=== PATIENT | female | born 1960 | race African-American/Black ===

== ENCOUNTER 2019-06-04 14:01 | Inpatient (IN) | payer MEDICAID ==
[~2019-06-04] VITALS: Ht 162.6 cm; Wt 45.4 kg
[~2019-06-04 14:01] MED LIST: AMLO10TA4 PO; ASPI-1393 PO; CALC-25 PO; CALC0.253 PO; CALC667T6 PO; CARI350T27 PO; CARV3.1242 PO; CATOPRIL PO; CLON0.2T PO; DIPH25CA83 PO; FAMO20TA8 PO; FERR-63 PO; FOLI-43 PO; HYDR-1717 PO; LISI-604 PO; LOSA100T32 PO
[2019-06-04] MEDS ORDERED: MORPHINE SULFATE 4 MG/ML CPJ (NOT FOR IM USE) IV STA (16:16)
[2019-06-04] MEDS ORDERED: ONDANSETRON HCL 4MG/2ML INJ IV STA (16:16)
[2019-06-04 16:44] LABS: HEMATOCRIT. 37.9 % (36.0-48.0); HEMOGLOBIN. 12.8 g/dL (12.0-16.0); MEAN CORPUSCULAR HEMOGLOBIN 32.1 pg (28.0-32.0); MEAN CORPUSCULAR VOLUME 95.3 fL (81.0-99.0); MEAN PLATELET VOLUME 8.3 fl (7.4-10.4); PLATELET 323 x1000/uL (130-400); RED BLOOD CELL COUNT 3.98 mill/uL (4.2-5.4); RED CELL DISTRIBUTION WIDTH 16.2 % (11.6-14.6)
[2019-06-04 16:51] LABS: CHLORIDE 95 mEq/L (98-107)
[2019-06-04 17:08] LABS: PLATELET ESTIMATE NORMAL
[2019-06-04 23:24] VITALS: BP 104/73
[2019-06-05] VITALS: BP 121/72
[2019-06-05] MEDS ORDERED: HYDROCODONE/ACETAMINOPHEN 10/325MG TABLET PO PRN
[2019-06-05 04:00] VITALS: BP 128/77
[2019-06-05 07:50] LABS: HEMATOCRIT. 32.6 % (36.0-48.0); HEMOGLOBIN. 10.7 g/dL (12.0-16.0); MEAN CORPUSCULAR HEMOGLOBIN 31.4 pg (28.0-32.0); MEAN CORPUSCULAR VOLUME 95.3 fL (81.0-99.0); PLATELET 304 x1000/uL (130-400); RED BLOOD CELL COUNT 3.42 mill/uL (4.2-5.4); RED CELL DISTRIBUTION WIDTH 16.5 % (11.6-14.6)
[2019-06-05] MEDS ORDERED: MEDICATION NOT ON FORMULARY EA (Calcium Acetate 667 MG) PO SCH (07:50)
[2019-06-05] MEDS ORDERED: CALCIUM ACETATE 667MG CAPSULE PO SCH (07:50)
[2019-06-05 08:00] VITALS: BP 156/82
[2019-06-05] MEDS ORDERED: CARVEDILOL 3.125 MG TABLET PO SCH (09:00)
[2019-06-05] MEDS ORDERED: ASPIRIN 81MG EC TABLET PO SCH (09:00)
[2019-06-05] MEDS ORDERED: FERROUS SULFATE 325MG TABLET PO SCH (09:00)
[2019-06-05] MEDS ORDERED: CALCITRIOL 0.25MCG CAPSULE PO SCH (09:00)
[2019-06-05] MEDS ORDERED: CLONIDINE 0.1MG TABLET PO PRN ×2 (09:00)
[2019-06-05] MEDS ORDERED: FAMOTIDINE 20MG TABLET PO SCH (09:00)
[2019-06-05] MEDS ORDERED: FOLIC ACID 1MG TABLET PO SCH (09:00)
[2019-06-05] MEDS ORDERED: AMLODIPINE 10MG TABLET PO SCH (09:00)
[2019-06-05] MEDS ORDERED: CARISOPRODOL 350 MG TABLET PO SCH (09:00)
[2019-06-05] MEDS ORDERED: LOSARTAN POTASSIUM 100 MG TABLET PO SCH (09:00)
[2019-06-05] MEDS ORDERED: CALCIUM CARBONATE 1250MG TABLET (500MG ELEMENTAL CALCIUM) PO SCH (09:00)
[2019-06-05] MEDS: FERROUS SULFATE 325MG TABLET PO SCH ×2 (09:11→17:48)
[2019-06-05] MEDS: FAMOTIDINE 20MG TABLET PO SCH (09:11)
[2019-06-05] MEDS: ASPIRIN 81MG EC TABLET PO SCH (09:11)
[2019-06-05] MEDS: CALCIUM ACETATE 667MG CAPSULE PO SCH ×3 (09:11→17:49)
[2019-06-05] MEDS: AMLODIPINE 10MG TABLET PO SCH ×2 (09:12→20:23)
[2019-06-05] MEDS: HYDROCODONE/ACETAMINOPHEN 10/325MG TABLET PO PRN (09:13)
[2019-06-05] MEDS: CALCIUM CARBONATE 1250MG TABLET (500MG ELEMENTAL CALCIUM) PO SCH ×2 (09:14→17:49)
[2019-06-05] MEDS: LOSARTAN POTASSIUM 100 MG TABLET PO SCH (09:14)
[2019-06-05] MEDS: CALCITRIOL 0.25MCG CAPSULE PO SCH ×2 (09:14→17:49)
[2019-06-05] MEDS: CARVEDILOL 3.125 MG TABLET PO SCH ×2 (09:14→20:23)
[2019-06-05] MEDS: CARISOPRODOL 350 MG TABLET PO SCH (09:14)
[2019-06-05] MEDS: FOLIC ACID 1MG TABLET PO SCH (09:15)
[2019-06-05] MEDS ORDERED: SODIUM POLYSTYRENE SULFONATE 15 G/60 ML BOT PO NR (09:45)
[2019-06-05] MEDS: DOCUSATE SODIUM 100MG CAPSULE PO SCH ×2 (11:48→17:48)
[2019-06-05] MEDS: SEVELAMER CARBONATE 800 MG TABLET PO SCH ×2 (11:50→17:49)
[2019-06-05 12:00] VITALS: BP 134/59
[2019-06-05] MEDS: MORPHINE SULFATE 2 MG/ML CPJ (NOT FOR IM USE) IV PRN ×2 (15:20→21:28)
[2019-06-05 15:59] LABS: CREATINE KINASE 59 IU/L (26-192)
[2019-06-05 16:00] VITALS: BP 137/67
[2019-06-05 16:00] LABS: CREATINE KINASE MB FRACTION 1.2 ng/mL (0.5-3.6)
[2019-06-05] MEDS ORDERED: DIPHENHYDRAMINE 25MG CAPSULE PO SCH (17:00)
[2019-06-05] MEDS: DIPHENHYDRAMINE 25MG CAPSULE PO SCH (17:00)
[2019-06-05] MEDS ORDERED: DIPHENHYDRAMINE 50MG/ML VIAL IV PRN (18:00)
[2019-06-05 20:00] VITALS: BP 136/67
[2019-06-05 21:02] LABS: PLATELET ESTIMATE NORMAL
[2019-06-05] MEDS ORDERED: HYDROMORPHONE HCL/PF 2MG/ML CPJ IV ONE (23:30)
[2019-06-06] VITALS: BP 151/65
[2019-06-06] MEDS: CALCIUM ACETATE 667MG CAPSULE PO SCH ×4 (07:39→17:54)
[2019-06-06] MEDS: FERROUS SULFATE 325MG TABLET PO SCH ×2 (07:39→17:54)
[2019-06-06] MEDS: SEVELAMER CARBONATE 800 MG TABLET PO SCH ×4 (07:39→17:54)
[2019-06-06 08:00] VITALS: BP 154/98
[2019-06-06] MEDS: ASPIRIN 81MG EC TABLET PO SCH (09:00)
[2019-06-06] MEDS: CALCIUM CARBONATE 1250MG TABLET (500MG ELEMENTAL CALCIUM) PO SCH ×2 (09:00→17:54)
[2019-06-06] MEDS: DOCUSATE SODIUM 100MG CAPSULE PO SCH ×2 (09:00→17:54)
[2019-06-06] MEDS: CALCITRIOL 0.25MCG CAPSULE PO SCH ×2 (09:00→17:54)
[2019-06-06] MEDS: LOSARTAN POTASSIUM 100 MG TABLET PO SCH (09:00)
[2019-06-06] MEDS: AMLODIPINE 10MG TABLET PO SCH ×2 (09:00→23:29)
[2019-06-06] MEDS: FOLIC ACID 1MG TABLET PO SCH (09:00)
[2019-06-06] MEDS: CARISOPRODOL 350 MG TABLET PO SCH (09:00)
[2019-06-06] MEDS: CARVEDILOL 3.125 MG TABLET PO SCH ×2 (09:00→23:29)
[2019-06-06] MEDS: FAMOTIDINE 20MG TABLET PO SCH (09:00)
[2019-06-06 09:21] LABS: HEMATOCRIT. 31.6 % (36.0-48.0); HEMOGLOBIN. 10.4 g/dL (12.0-16.0); MEAN CORPUSCULAR HEMOGLOBIN 31.4 pg (28.0-32.0); MEAN CORPUSCULAR VOLUME 95.2 fL (81.0-99.0); MEAN PLATELET VOLUME 8.7 fl (7.4-10.4); PLATELET 319 x1000/uL (130-400); RED BLOOD CELL COUNT 3.31 mill/uL (4.2-5.4); RED CELL DISTRIBUTION WIDTH 15.7 % (11.6-14.6)
[2019-06-06] MEDS ORDERED: REGADENOSON 0.4 MG/5 ML IV ONE ×2 (11:15→13:35)
[2019-06-06 12:00] VITALS: BP 176/102
[2019-06-06] MEDS: MORPHINE SULFATE 2 MG/ML CPJ (NOT FOR IM USE) IV PRN ×2 (15:21→23:28)
[2019-06-06 16:00] VITALS: BP 196/105
[2019-06-06 16:04] LABS: PLATELET ESTIMATE NORMAL
[2019-06-06] MEDS: DIPHENHYDRAMINE 25MG CAPSULE PO SCH (16:30)
[2019-06-06] MEDS: HYDROCODONE/ACETAMINOPHEN 10/325MG TABLET PO PRN (16:42)
[2019-06-06] MEDS ORDERED: DIPHENHYDRAMINE 50MG/ML VIAL IV NR (17:15)
[2019-06-06 20:00] VITALS: BP 148/76
[2019-06-06] MEDS ORDERED: EPOETIN ALFA 4000UNITS/ML VIAL SUBCUT ONE ×2 (21:00)
[2019-06-06] MEDS: HEPARIN SODIUM 1,000 UNIT/1ML VIAL IV NR ×2 (23:11→23:26)
[2019-06-07] VITALS: BP 152/86
[2019-06-07 04:00] VITALS: BP 185/99
[2019-06-07] MEDS: FERROUS SULFATE 325MG TABLET PO SCH (06:49)
[2019-06-07] MEDS: SEVELAMER CARBONATE 800 MG TABLET PO SCH ×2 (06:49→13:28)
[2019-06-07 06:51] VITALS: BP 185/99
[2019-06-07 08:00] VITALS: BP 162/78
[2019-06-07] MEDS ORDERED: CARVEDILOL 6.25 MG TABLET PO SCH (09:00)
[2019-06-07] MEDS: ASPIRIN 81MG EC TABLET PO SCH (09:32)
[2019-06-07] MEDS: CALCITRIOL 0.25MCG CAPSULE PO SCH (09:33)
[2019-06-07] MEDS: FOLIC ACID 1MG TABLET PO SCH (09:33)
[2019-06-07] MEDS: FAMOTIDINE 20MG TABLET PO SCH (09:33)
[2019-06-07] MEDS: LOSARTAN POTASSIUM 100 MG TABLET PO SCH (09:33)
[2019-06-07] MEDS: DOCUSATE SODIUM 100MG CAPSULE PO SCH (09:33)
[2019-06-07] MEDS: CALCIUM CARBONATE 1250MG TABLET (500MG ELEMENTAL CALCIUM) PO SCH (09:33)
[2019-06-07] MEDS: CALCIUM ACETATE 667MG CAPSULE PO SCH ×2 (09:33→13:28)
[2019-06-07] MEDS: CARISOPRODOL 350 MG TABLET PO SCH (09:34)
[2019-06-07] MEDS: AMLODIPINE 10MG TABLET PO SCH (09:34)
[2019-06-07] MEDS: HYDROCODONE/ACETAMINOPHEN 10/325MG TABLET PO PRN (09:44)
[2019-06-07 12:00] VITALS: BP 148/74
[2019-06-07 13:31] VITALS: BP 148/72
== END 2019-06-07 16:00 | disposition home or self-care (01) | DRG 198 ==
LOC: ER 14:01 → EDBEDREQTM 19:15 → EDBEDREQ 19:15 → ENRESERV 20:16 → 6WST 22:01 → UNDODISIN 22:34
PROVIDERS: ADMIT Internal Medicine; ATTEND Internal Medicine
PROC: 5A1D70Z Performance of Urinary Filtration, Intermittent, Less than 6 Hours Per Day (ICD-10-PCS; principal; 2019-06-06)
DX: I24.8 Other forms of acute ischemic heart disease (principal); I13.2 Hypertensive heart and chronic kidney disease with heart failure and with stage 5 chronic kidney disease, or end stage renal disease; E87.8 Other disorders of electrolyte and fluid balance, not elsewhere classified; I42.9 Cardiomyopathy, unspecified; E87.5 Hyperkalemia; N18.6 End stage renal disease; D63.8 Anemia in other chronic diseases classified elsewhere; I50.42 Chronic combined systolic (congestive) and diastolic (congestive) heart failure; I25.10 Atherosclerotic heart disease of native coronary artery without angina pectoris; I25.2 Old myocardial infarction; Z85.43 Personal history of malignant neoplasm of ovary; Z86.74 Personal history of sudden cardiac arrest; Z90.710 Acquired absence of both cervix and uterus; Z90.81 Acquired absence of spleen; Z95.810 Presence of automatic (implantable) cardiac defibrillator; Z99.2 Dependence on renal dialysis; Z88.8 Allergy status to other drugs, medicaments and biological substances; Z79.82 Long term (current) use of aspirin; Z79.899 Other long term (current) drug therapy; Z68.1 Body mass index [BMI] 19.9 or less, adult
CPT/HCPCS: 36415; 71045; 78452; 80048; 82550; 82553; 84132; 84484; 86706; 93005; 93017; 93306; 93970; 96374; 96375; 99285; A9500; J0885; J1170; J1200; J1644; J2270; J2405; J2785; Q0163